=== PATIENT | male | born 1955 | race Caucasian/White ===

== ENCOUNTER 2016-04-08 08:51 | Day surgery (SDC) | payer OTHER ==
[~2016-04-08] VITALS: Ht 190.5 cm; Wt 68.0 kg
[~2016-04-08 08:51] MED LIST: GABA600T2 PO; LACO100T2 PO; Lactated Ringer's 1,000 ML IV ONE
[2016-04-08] MEDS ORDERED: Propofol 10,000 mCg/mL 20 mL Inj ONE (08:52)
[2016-04-08 09:34] VITALS: BP 111/72; PULSE 67; RESP 15; O2SAT 99
[2016-04-08] MEDS ORDERED: Lactated Ringer's 1,000 ML IV SCH (10:19)
--- NOTE | 2016-04-08 10:19 | PCM.HPANE ---
Patient Data Date of Service: Apr 08, 2016 Surgeon Admitting Provider: Attending Provider:Toni Boyle MD Primary Care Physician:Rosalva Sosa PA-C Other Provider:Brice Santillan Anesthesia Reason for Visit Chronic Viral Hepatitis C Ht/WT & BMI Height (Feet): 6 Height (Inches): 3 Weight (Kilograms): 68.04 Body Mass Index 18.00 Allergies Coded Allergies: varenicline (Verified Allergy, Unknown, Hallucinations, 04/08/16) Past Anesthesia History Anesthesia History: Denies:: Abnormal Airway, Anesthesia Reactions, Difficult Intubation, Fam Anesthesia Reaction, Fam Malignant Hypertherm, Malignant Hyperthermia Diabetes History Hx Diabetes?: No MRSA MRSA: No Medications Hypertension Medication: No Home Meds Incl Beta Michael: No Reported Medications Lacosamide (Vimpat)100 Mg [id number] Mg PO BID 30 Days 04/07/16 Gabapentin 600 Mg [id number] Mg PO TID Ref 0 04/07/16 History History of ENT Problems?: No HEENT History: Denies:: Abnormal Airway Difficult Intubation Dysphagia (Erosive esophagitis in the past) Hearing Problem Hx of Heart Problems?: No Cardiovascular History: Denies:: Pacemaker Hx of Respiratory Problem?: Yes Respiratory History: Positive for:: COPD ("Some evidence of COPD") Pneumonia (Twice) Hx Neurologic Problems?: No Neurological History: Denies:: CVA Hx of GI Problems?: Yes Gastrointestinal History: Positive for:: Cirrhosis Gall Bladder Disease (Constanza) Gastroesphageal Reflux (Pt is asymptomatic) Liver Disease (Hep C) Hx of Problems?: No HX of Peritoneal Dialysis: No Hx Musculoskeletal Problems?: No Hx of Psycho/Social Problems?: No Hx Surgeries?: Yes (Constanza, tonsils, bilateral hernia rpr, eye surgery) Hx Any Other Health Problems?: Yes Hx Diabetes: No Hx Alcohol Use: Yes (3 mixed drinks/week; marijuana vaporizer daily)Hx Substance Use: Yes Smoking Status: Current Every Day Smoker Have You Smoked inLast 12 mo: Yes Stop/Bang Treated for Sleep Apnea?: Yes Do You Have a CPAP Machine?: No S-Snoring: Do You Snore Loudly: No T-Tired: feel tired, fatigued: No O-Obsered: Observed not breath: No P-Blood Pressure: treated: No B- Body Mass Index > 35 kg/m2: No A- Age over 50: Yes N- Neck Large Circumference: No G- Gender Male: Yes MATHIEU Total Score: 2 Risk Assessment Category Category 1A: Patient has history of documented sleep apnea, and HAS NOT received any narcotic, sedative or anesthesia administration during this stay. Category 1B: Patient has history of documented sleep apnea, and HAS received any narcotic , sedative or anesthesia administration during this stay Category 2: Patient has SUSPECTED Obstructive Sleep Apnea, and HAS received any narcotic , sedative or anesthesia administration during this stay. Category 3: Patient has SUSPECTED Obstructive Sleep Apnea and HAS NOT received narcotic, sedative or anesthesia administration during this stay. Category 4: Outpatient in Procedural Areas with known sleep apnea or who screen positive for High Risk via the STOP/BANG questionnaire. Exam Exam Vital Signs Vital Signs Date Time Temp Pulse Resp B/P Pulse Ox O2 Delivery O2 Flow Rate FiO2 04/08/16 09:34 36.8 67 15 111/72 99 Room Air General Appearance: Alert, Oriented X3, Cooperative HEENT/AIRWAY: MP 2, Neck Movement (Full), Mouth Opening (Wide) Lungs: Clear to Auscultation, Normal Air Movement Heart: Regular Rate/Rhythm, Normal S1, Normal S2 Meds/Labs/Diagnostics Admission Meds Current Medications Lactated Ringer's (Lr) 1,000 ml @ 10 mls/hr Q24H ONCE IV Last administered on 04/08/16 09:53; Start 04/08/16 at 06:00; Stop 04/09/16 at 05:59 Lidocaine HCl (Xylocaine Viscous 2% Soln 15mL) 15 ml PRN ONCE PO Last administered on 04/08/16 09:53; Start 04/07/16 at 18:05; Stop 04/07/16 at 18:17 ; Status DC Plan Impression Patient chart reviewed, patient interviewed and anesthestic plan with risks, benefits, and alternatives discussed, and informed consent obtained. NPO Status: > 2 hours clears ASA Physical Status: ASA2 Mod Systemic Disease Anesthetic Plan: MAC Bene/Risks/Altern/Consents: Yes HP Complete Prior to Induction: Yes Rahul Duenas MD Apr 08, 2016 10:19
[2016-04-08] MEDS ORDERED: MetoCLOpramide 5 mg/mL 2 mL Inj IVPUSH PRN (10:20)
[2016-04-08] MEDS ORDERED: Ondansetron 2 mg/mL 2 mL Inj IVPUSH PRN (10:20)
[2016-04-08 10:50] VITALS: BP 107/75; PULSE 73; RESP 16; O2SAT 95
--- NOTE | 2016-04-08 10:56 | PCM.ANEP1 ---
Post Anesthesia Phase 1 PACU Phase 1 Assessment Date of Service: Apr 08, 2016 Vital Signs Vital Signs Date Time Temp Pulse Resp B/P Pulse Ox O2 Delivery O2 Flow Rate FiO2 04/08/16 10:50 36.4 73 16 107/75 95 Room Air 04/08/16 09:34 36.8 67 15 111/72 99 Room Air Anesthetic Administered: MAC Level of Alertness: Sleeping, hard to arouse OMALLEY's with Equal Strength: Yes Pain: No Nausea or Vomiting: No Oxygen Delivery: Room Air Lungs: Normal Air Movement Rahul Duenas MD Apr 08, 2016 10:56
[2016-04-08 11:04] VITALS: BP 118/85; PULSE 63; RESP 14; O2SAT 91
--- NOTE | 2016-04-08 11:04 | PCM.ANEP2 ---
Post Anesthesia Evaluation ASA/CMS Post Anesthesia Date of Service: Apr 08, 2016 VS in Patient's Normal Range?: Yes Resp Stable; Airway Patent?: Yes CV Function & Hydration Stable: Yes Mental Status Recovered?: Yes Pain control Satisfactory?: Yes N/V Control Satisfactory?: Yes Rahul Duenas MD Apr 08, 2016 11:04
[2016-04-08 11:13] VITALS: BP 110/84; PULSE 71; RESP 16; O2SAT 97
--- NOTE | 2016-04-08 13:18 | ENDO ---
[address] [address] ENDOSCOPY PROCEDURE PATIENT: LADAN SHANKS : 1955 MR#: [id number] ADMIT: 04/08/2016 JOB ID: [id number] DATE: 04/08/2016 PRIMARY CARE PROVIDERS: Rosalva Sosa PA-C PROCEDURE: Esophagogastroduodenoscopy with biopsies. INDICATIONS: A 60-year-old male with a history of hepatitis C. He had some transient thrombocytopenia. There was some concern that he may have developed cirrhosis and EGD for variceal screening is pursued. EQUIPMENT: GIF H 180 J. SEDATION: Monitored anesthesia as provided by Dr. Rahul Duenas. COMPLICATIONS: None identified. PROCEDURE INFORMATION: After the risks and benefits were explained, written and verbal informed consent was obtained. The patient was brought into the endoscopy suite and placed into the left lateral decubitus position. Sedation was achieved using the above-stated medications with the addition of oxygen via nasal cannula. The scope was introduced into the mouth through the bite block, and advanced under direct visualization to the second portion of the duodenum. The scope was slowly withdrawn to carefully examine the mucosa for any defects or lesions. Retroflexed views were accomplished in the stomach. The stomach was decompressed. The scope removed from the patient who tolerated the procedure well. FINDINGS: 1. Duodenum: This appeared visually normal from the bulb through to the second portion. 2. Stomach: No outlet obstruction. No ulcers. No mass lesions. No gastric varices. There is a slightly inflamed nodule in the proximal stomach that was targeted for biopsy. Otherwise, a small hiatal hernia was noted on retroflexed views of the LES. 3. Esophagus: The squamocolumnar junction generally correlated with the top of the gastric folds. However, in the 7 o'clock location, there was a tongue of possible short segment Castle's. This would measure out at C0 M1. A small biopsy was taken from this tongue for histopathologic analysis. Otherwise, no significant pathology was appreciated in the esophagus. Certainly, no varices. ENDOSCOPIC DIAGNOSES: 1. Small hiatal hernia. 2. 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 3. Eroded gastric nodule. 4. Mild diffuse gastropathy. RECOMMENDATIONS: 1. Await histopathology. 2. If Castle's is identified, then surveillance EGD would be appropriate for 9-12 months' time. 3. Otherwise followup in GI clinic for ongoing hepatitis C therapy.
--- NOTE | 2016-04-09 11:32 | PATH ---
SURGICAL PATHOLOGY Attending Physician:Kalpesh Villalba CASE STATUS: Signed Out PATIENT NAME: LADAN SHANKS PID: [id number] : 1955 DATE COLLECTED:04/08/2016 20:04 SPECIMEN: 1: Gastric, Biopsy 2: Esophagus, Biopsy CLINICAL HISTORY: 1). GASTRIC NODULE BIOPSY 2). DISTAL ESOPHAGUS BIOPSY FINAL DIAGNOSIS: 1. Gastric Nodule Biopsy: Changes consistent with fundic gland polyp, negative for atypia. 2. Distal Esophagus Biopsy: Fragment of gastric cardia-type mucosa, negative for specialized metaplasia of Castle's type esophagus. No squamous mucosa identified. Negative for dysplasia and malignancy. ICD10 K31.7 GROSS DESCRIPTION: The specimen is received in two formalin filled containers labeled with the patient's name. 1). The specimen is sublabeled "gastric nodule" and consists of a 0.4 x 0.3 x 0.3 CM portion of tissue which is entirely submitted in cassette 1A. 2). The specimen is sublabeled "distal esophagus" and consists of a 0.3 x 0.2 x 0.2 CM portion of tissue which is entirely submitted in cassette 2A. 04/08/2016 [facility] ICD-9 CODES: CPT CODES: 1: 66730 2: 96860 Electronically Signed Out Toni Hunter MD [facility] Pathology [facility] [address], [place] [address] Technical component performed at [facility], [address] [place] [address] Ave[address], [place], [address]
== END 2016-04-08 23:59 | disposition home or self-care (01) ==
LOC: END 08:51
PROVIDERS: ATTEND Internal Medicine Gastroenterology
DX: K44.9 Diaphragmatic hernia without obstruction or gangrene (principal); K31.7 Polyp of stomach and duodenum; D69.6 Thrombocytopenia, unspecified; B18.2 Chronic viral hepatitis C; K21.9 Gastro-esophageal reflux disease without esophagitis; K74.60 Unspecified cirrhosis of liver; F12.90 Cannabis use, unspecified, uncomplicated; G40.909 Epilepsy, unspecified, not intractable, without status epilepticus; F17.210 Nicotine dependence, cigarettes, uncomplicated; J44.9 Chronic obstructive pulmonary disease, unspecified; Z72.89 Other problems related to lifestyle; Z86.010 Personal history of colon polyps
CPT/HCPCS: 43239; J7120